=== PATIENT | male | born 1945 ===

== ENCOUNTER 2018-11-24 17:32 | Outpatient (CLI) | payer MEDICARE, MEDICAID ==
[2018-11-24 18:15] LABS: %Neutrophils 65.1 % (42.0-75.0); Hemoglobin 12.3 g/dL (14.0-18.0); Manual Diff?? NO; Mean Corpuscular HGB CONC 32.1 g/dL (32.0-36.0); Mean Corpuscular Hemoglobin 29.3 pg (27.0-31.0); Mean Corpuscular Volume 91.3 fL (78.0-98.0); Mean Platelet Volume 7.6 fL (7.4-10.4); Platelet Count 205 thou/uL (130-400); RBC Distribution Width 13.5 % (11.5-14.5); Red Blood Cell (RBC) Count 4.21 mill/uL (4.70-6.10); White Blood Cell (WBC) Count 11.4 thou/uL (4.8-10.8)
[2018-11-24 18:16] LABS: #Basophils 0.1 thou/uL (0.0-0.2); #Eosinphils 0.6 thou/uL (0.0-0.7); #Lymphocytes 2.7 thou/uL (1.20-3.40); #Monocytes 0.7 thou/uL (0.11-0.59); #Neutrophils 7.4 thou/uL (1.40-6.50); %Basophils 0.9 % (0.0-1.0); %Eosinophils 4.9 % (0.0-10.0); %Lymphocytes 23.3 % (21.0-51.0); %Monocytes 5.8 % (0.0-10.0)
[2018-11-24 18:17] LABS: Anion Gap 17 mmol/L (10-20); BUN (Urea Nitrogen) 21 mg/dL (8.4-25.7); Carbon Dioxide 26 mmol/L (23-31); Chloride 99 mmol/L (98-107); Potassium 4.4 mmol/L (3.5-5.1); Sodium 138 mmol/L (136-145)
[2018-11-24 18:18] LABS: ALT (SGPT) 18 U/L (8-55); AST (SGOT) 32 U/L (5-34); Albumin 4.4 g/dL (3.4-4.8); Alkaline Phosphatase 137 U/L (40-150); Bilirubin, Total 0.3 mg/dL (0.2-1.2); Calc. Creatinine Clearance 0 mL/min (70-130); Calcium 9.5 mg/dL (7.8-10.44); Estimated GFR-MDRD 73; Globulin 2.7 g/dL (2.4-3.5); Glucose 145 mg/dL (83-110); Protein, Total 7.1 g/dL (5.8-8.1)
== END 2018-11-24 17:33 | disposition home or self-care (01) ==
LOC: MADLAB 17:32
DX: J44.9 Chronic obstructive pulmonary disease, unspecified (principal); Z89.612 Acquired absence of left leg above knee
CPT/HCPCS: 80053; 85025